=== PATIENT | female | born 1995 | race African-American/Black ===

== ENCOUNTER 2021-11-09 17:29 | Emergency (ER) | payer OTHER ==
[~2021-11-09] VITALS: Ht 165.1 cm; Wt 68.0 kg
[2021-11-09 17:41] VITALS: BP 168/108
== END 2021-11-09 19:15 | disposition left against medical advice (07) ==
LOC: ER 17:29
DX: R52 Pain, unspecified (principal); Z53.21 Procedure and treatment not carried out due to patient leaving prior to being seen by health care provider